=== PATIENT | male | born 1990 | race Caucasian/White ===

== ENCOUNTER 2016-06-29 09:52 | Emergency (ER) | payer MEDICAID, OTHER ==
[~2016-06-29] VITALS: Ht 193 cm; Wt 79.5 kg
[~2016-06-29 09:52] MED LIST: AUGM875 PO; HYDR10TA16 PO
[2016-06-29 09:53] VITALS: BP 123/70; PULSE 76; RESP 17; TEMP 97.7; O2SAT 100
[2016-06-29] MEDS ORDERED: SODIUM CHLOR 0.9% 1000 ML INJ 1,000 ML IV ONE (10:31)
[2016-06-29] MEDS ORDERED: ONDANSETRON HCL 4 MG/2 ML VIAL IVP ONE (10:45)
[2016-06-29] MEDS ORDERED: SODIUM CHLORIDE 0.9% FLUSH 10 ML FLUSH IVF PRN (10:45)
--- NOTE | 2016-06-29 10:51 | PD ---
HPI Chief Complaint: GI Complaint Time Seen by Provider: 10:45 Travel History International Travel<30 days: No Contact w/Intl Traveler<30days: No Traveled to known affect area: No History of Present Illness HPI Patient is a 26-year-old male presenting to emergency department evaluation of vomiting. Patient states it started this morning at about 9:15, he vomited 3-4 times, and dry heaving. Patient states his hands felt tingly in his jaw feels tight. He has not had anything to eat today but has been keeping fluids down since he last vomited prior to arrival. Patient is on amoxicillin for a dental infection for the last 1.5 days. Pt did take the amoxicillin on an empty stomach. He denies any fever, chills, chest pain, shortness of breath, abdominal pain. PFSH Past Medical History Medical History: Denies Significant Hx Cancer: No Diabetes: No Hepatitis: No Hiatal Hernia: No Thyroid Disease: No ?: Not Past Surgical History Pacemaker: No Other Surgery: Yes (hand) Family History Family History: Negative Social History Alcohol Use: No Tobacco Use: No Substance Use: No Allergies-Medications (Allergen,Severity, Reaction): Coded Allergies: Clindamycin (Verified Allergy, Severe, Anaphylaxis, 06/29/16) Tramadol (Verified Allergy, Severe, HIVES, 06/29/16) Amoxicillin (Verified Adverse Reaction, Severe, VOMITING, 06/29/16) Reported Meds & Prescriptions Reported Meds & Active Scripts Active Zofran Odt (Ondansetron Odt) 4 Mg Tab 4 Mg SL Q6HR PRN 3 Days Reported Lortab 10/500 (Acetaminophen/Hydrocodone Bitart) 10 Mg/500 Mg Tab 1 Tab PO Q4- 6HPRN FOR PAIN Augmentin (Amoxicillin/Clavulanate Potassium) 875 Mg Tab 500 Mg PO TID Review of Systems Except as stated in HPI: all other systems reviewed are Neg General / Constitutional: No: Fever, Chills HENT: No: Headaches Cardiovascular: No: Chest Pain or Discomfort Respiratory: No: Shortness of Breath Gastrointestinal: Positive: Nausea, Vomiting, No: Diarrhea, Abdominal Pain, Changes in Bowel Habits, Indigestion, Loss of Appetite Musculoskeletal: Positive: Arthralgias (jaw) Neurologic: No: Weakness, Dizziness, Syncope Physical Exam Narrative GENERAL: Well-developed, well-nourished, alert male. Resting comfortably in no acute distress. SKIN: Focused skin assessment warm/dry. HEAD: Atraumatic. Normocephalic. Jaw opens and closes freely with no crepitus noted. MOUTH: Mucous membranes moist, no lesions, tongue and gums appear normal. Patient has multiple dental caries and capped teeth. EYES: Pupils equal and round. No scleral icterus. No injection or drainage. ENT: No nasal bleeding or discharge. Mucous membranes pink and moist. NECK: Trachea midline. No JVD. CARDIOVASCULAR: Regular rate and rhythm. No murmur appreciated. RESPIRATORY: No accessory muscle use. Clear to auscultation. Breath sounds equal bilaterally. GASTROINTESTINAL: Abdomen soft, non-tender, nondistended. Hepatic and splenic margins not palpable. MUSCULOSKELETAL: No obvious deformities. No clubbing. No cyanosis. No edema. NEUROLOGICAL: Awake and alert. No obvious cranial nerve deficits. Motor grossly within normal limits. Normal speech. PSYCHIATRIC: Appropriate mood and affect; insight and judgment normal. Data Data Last Documented VS Vital Signs Date Time Temp Pulse Resp B/P Pulse Ox O2 Delivery O2 Flow Rate FiO2 06/29/16 11:51 72 15 120/80 100 06/29/16 09:53 97.7 Orders Complete Blood Count With Diff (06/29/16 10:31) Lipase (06/29/16 10:31) Iv Access Insert/Monitor (06/29/16 10:31) Ondansetron Inj (Zofran Inj) (06/29/16 10:45) Sodium Chlor 0.9% 1000 Ml Inj (Ns 1000 M (06/29/16 10:31) Sodium Chloride 0.9% Flush (Ns Flush) (06/29/16 10:45) Comprehensive Metabolic Panel (06/29/16 10:40) Magnesium (Mg) (06/29/16 10:40) Labs Laboratory Tests Test 06/29/16 10:40 White Blood Count 5.5 TH/MM3 Red Blood Count 4.82 MIL/MM3 Hemoglobin 14.6 GM/DL Hematocrit 41.7 % Mean Corpuscular Volume 86.5 FL Mean Corpuscular Hemoglobin 30.4 PG Mean Corpuscular Hemoglobin 35.1 % Concent Red Cell Distribution Width 13.6 % Platelet Count 273 TH/MM3 Mean Platelet Volume 7.0 FL Neutrophils (%) (Auto) 62.5 % Lymphocytes (%) (Auto) 25.4 % Monocytes (%) (Auto) 8.2 % Eosinophils (%) (Auto) 3.0 % Basophils (%) (Auto) 0.9 % Neutrophils # (Auto) 3.4 TH/MM3 Lymphocytes # (Auto) 1.4 TH/MM3 Monocytes # (Auto) 0.5 TH/MM3 Eosinophils # (Auto) 0.2 TH/MM3 Basophils # (Auto) 0.1 TH/MM3 CBC Comment DIFF FINAL Differential Comment Sodium Level 139 MEQ/L Potassium Level 3.5 MEQ/L Chloride Level 104 MEQ/L Carbon Dioxide Level 27.0 MEQ/L Anion Gap 8 MEQ/L Blood Urea Nitrogen 7 MG/DL Creatinine 0.91 MG/DL Estimat Glomerular Filtration 101 ML/MIN Rate Random Glucose 91 MG/DL Calcium Level 9.4 MG/DL Magnesium Level 2.3 MG/DL Total Bilirubin 0.6 MG/DL Aspartate Amino Transf 24 U/L (AST/SGOT) Alanine Aminotransferase 43 U/L (ALT/SGPT) Alkaline Phosphatase 50 U/L Total Protein 7.6 GM/DL Albumin 4.4 GM/DL Lipase 101 U/L [facility] Medical Decision Making Medical Screen Exam Complete: Yes Emergency Medical Condition: Yes Interpretation(s) Vital Signs Date Time Temp Pulse Resp B/P Pulse Ox O2 Delivery O2 Flow Rate FiO2 06/29/16 09:53 97.7 76 17 123/70 100 Differential Diagnosis GI upset secondary to medication administration versus gastroenteritis versus cholecystitis versus electrolyte abnormality. Narrative Course Patient is a 26-year-old male presenting to emergency evaluation of vomiting this morning. VSS. Pt appears well. Pt took amoxicillin that he was prescribed for a dental infection on an empty stomach approx. 1 hour prior to the vomiting. Pt has not had any further vomiting in the ER. He was given IVF and Zofran. CBC is unremarkable. CMP is unremarkable Mg+ normal Lipase is normal at 101 Patient will be provided with a prescription for Zofran, he is encouraged take amoxicillin with food to avoid further GI upset. Patient and verbalized understanding of these instructions. Patient was encouraged to follow-up with his primary doctor. He was also advised to seek further evaluation with the dentist for his dental problems. Patient is stable for discharge. Diagnosis Primary Impression: Drug-induced nausea and vomiting Referrals: Dentist Primary Care Physician Patient Instructions: Acute Nausea and Vomiting (ED), Amoxicillin (By mouth), General Instructions Additional Instructions: Take antibiotics with food Follow-up with his dentist Follow-up with her primary doctor Return to emergency department for any new or worsening symptoms Med/Other Pt SpecificInfo: Prescription(s) given Scripts Ondansetron Odt (Zofran Odt)4 Mg Tab4 Mg SL Q6HR PRN (Nausea/Vomiting) 3 Days Ref 0 Prov:Sinai Hilliard 06/29/16 Disposition: 01 DISCHARGE HOME Condition: Stable Sinai Hilliard Jun 29, 2016 10:51
[2016-06-29 10:53] LABS: AUTOMATED NEUTROPHIL # 3.4 TH/MM3 (1.8-7.7); BASOPHIL # 0.1 TH/MM3 (0-0.2); BASOPHIL % 0.9 % (0.0-2.0); EOSINOPHIL # 0.2 TH/MM3 (0-0.4); HEMATOCRIT 41.7 % (39.0-51.0); HEMO FLAGS DIFF FINAL; LYMPH % 25.4 % (9.0-44.0); LYMPHOCYTE # 1.4 TH/MM3 (1.0-4.8); MEAN CELL VOLUME 86.5 FL (80.0-100.0); MEAN CORPUSCULAR HEMOGLOBIN 30.4 PG (27.0-34.0); MEAN CORPUSCULAR HGB CONC 35.1 % (32.0-36.0); MONO % 8.2 % (0.0-8.0); NEUT % 62.5 % (16.0-70.0); PLATELET COUNT 273 TH/MM3 (150-450); RED BLOOD COUNT 4.82 MIL/MM3 (4.50-5.90); RED CELL DISTRIBUTION WIDTH 13.6 % (11.6-17.2); WHITE BLOOD COUNT 5.5 TH/MM3 (4.0-11.0)
[2016-06-29 11:07] LABS: ANION GAP 8 MEQ/L (5-15); BLOOD UREA NITROGEN 7 MG/DL (7-18); CHLORIDE 104 MEQ/L (98-107); GLOMERULAR FILTRATION RATE 101 ML/MIN (>89); POTASSIUM 3.5 MEQ/L (3.5-5.1); SODIUM (NA) 139 MEQ/L (136-145)
[2016-06-29] MEDS ORDERED: ZOFR4TAB3 SL (11:32)
[2016-06-29 11:51] VITALS: BP 120/80; PULSE 72; RESP 15; O2SAT 100
[2016-06-29 12:00] LABS: ALT (GPT) 43 U/L (12-78); AST (GOT) 24 U/L (15-37)
[2016-06-29 12:04] LABS: ALKALINE PHOSPHATASE 50 U/L (45-117); MAGNESIUM 2.3 MG/DL (1.5-2.5); TOTAL BILIRUBIN ADULT 0.6 MG/DL (0.2-1.0)
--- NOTE | 2016-06-29 12:06 | PD ---
Data Data Last Documented VS Vital Signs Date Time Temp Pulse Resp B/P Pulse Ox O2 Delivery O2 Flow Rate FiO2 06/29/16 11:51 72 15 120/80 100 06/29/16 09:53 97.7 Orders Complete Blood Count With Diff (06/29/16 10:31) Lipase (06/29/16 10:31) Iv Access Insert/Monitor (06/29/16 10:31) Ondansetron Inj (Zofran Inj) (06/29/16 10:45) Sodium Chlor 0.9% 1000 Ml Inj (Ns 1000 M (06/29/16 10:31) Sodium Chloride 0.9% Flush (Ns Flush) (06/29/16 10:45) Comprehensive Metabolic Panel (06/29/16 10:40) Magnesium (Mg) (06/29/16 10:40) Labs Laboratory Tests Test 06/29/16 10:40 White Blood Count 5.5 TH/MM3 Red Blood Count 4.82 MIL/MM3 Hemoglobin 14.6 GM/DL Hematocrit 41.7 % Mean Corpuscular Volume 86.5 FL Mean Corpuscular Hemoglobin 30.4 PG Mean Corpuscular Hemoglobin 35.1 % Concent Red Cell Distribution Width 13.6 % Platelet Count 273 TH/MM3 Mean Platelet Volume 7.0 FL Neutrophils (%) (Auto) 62.5 % Lymphocytes (%) (Auto) 25.4 % Monocytes (%) (Auto) 8.2 % Eosinophils (%) (Auto) 3.0 % Basophils (%) (Auto) 0.9 % Neutrophils # (Auto) 3.4 TH/MM3 Lymphocytes # (Auto) 1.4 TH/MM3 Monocytes # (Auto) 0.5 TH/MM3 Eosinophils # (Auto) 0.2 TH/MM3 Basophils # (Auto) 0.1 TH/MM3 CBC Comment DIFF FINAL Differential Comment Sodium Level 139 MEQ/L Potassium Level 3.5 MEQ/L Chloride Level 104 MEQ/L Carbon Dioxide Level 27.0 MEQ/L Anion Gap 8 MEQ/L Blood Urea Nitrogen 7 MG/DL Creatinine 0.91 MG/DL Estimat Glomerular Filtration 101 ML/MIN Rate Random Glucose 91 MG/DL Calcium Level 9.4 MG/DL Magnesium Level 2.3 MG/DL Total Bilirubin 0.6 MG/DL Aspartate Amino Transf 24 U/L (AST/SGOT) Alanine Aminotransferase 43 U/L (ALT/SGPT) Alkaline Phosphatase 50 U/L Total Protein 7.6 GM/DL Albumin 4.4 GM/DL Lipase 101 U/L MDM Supervised Visit with MARY LOU: Yes Narrative Course The history, exam, and medical decision-making in the associated mid-level provider note were completed with my assistance. I reviewed and agree with the findings presented. I attest that I had a [id number] encounter with the patient on the same day, and personally performed and documented my assessment and findings in the medical record. *My assessment and Findings: 26 year-old man who developed nausea and vomiting after taking amoxicillin this morning. He also had some numbness and tingling in the setting of what sounds like hyperventilation. He looks well now. Benign exam. Labs are unremarkable. Recommend outpatient follow-up. Diagnosis Primary Impression: Drug-induced nausea and vomiting Referrals: Dentist Primary Care Physician Patient Instructions: General Instructions, Amoxicillin (By mouth), Acute Nausea and Vomiting (ED) Additional Instruction: Take antibiotics with food Follow-up with his dentist Follow-up with her primary doctor Return to emergency department for any new or worsening symptoms Scripts Ondansetron Odt (Zofran Odt)4 Mg Tab4 Mg SL Q6HR PRN (Nausea/Vomiting) 3 Days Ref 0 Prov:Sinai Hilliard 06/29/16 Jj Mantilla MD Jun 29, 2016 12:06
== END 2016-06-29 12:47 | disposition home or self-care (01) ==
LOC: NEPD 09:52
DX: R11.2 Nausea with vomiting, unspecified (principal); R20.2 Paresthesia of skin; T36.0X5A Adverse effect of penicillins, initial encounter
CPT/HCPCS: 80053; 83690; 83735; 85025; 96361; 96374; 99284; J2405; J7030